=== PATIENT | female | born 1960 | race Two or more races ===

== ENCOUNTER 2023-10-03 12:33 | Outpatient (CLI) | payer MEDICARE, MEDICAID | END 2023-10-03 23:59 | disposition home or self-care (01) | LOC: RAD 12:33 | PROVIDERS: ATTEND Family Medicine | DX: Z12.2 Encounter for screening for malignant neoplasm of respiratory organs (principal); Z87.891 Personal history of nicotine dependence; R05.1 Acute cough; R91.1 Solitary pulmonary nodule | CPT/HCPCS: 71046; 71271 ==

== ENCOUNTER 2024-11-28 08:03 | Outpatient (CLI) | payer MEDICARE, MEDICAID ==
--- NOTE | 2024-11-28 10:08 | RADIOLOGY REPORT ---
INDICATION: CHRONIC BILAT LBP WITH BILAT SCIATICA COMPARISON: None TECHNIQUE: 3 views of the lumbar spine were obtained. FINDINGS: The lumbar vertebral alignment is normal. Multilevel degenerative changes most severe at l4-l5 thru l5-s1 causing moderate to severe neuroforam inal stenosis and spinal canal stenosis No acute fracture, vertebral compression deformity or aggressive osseous lesions. The paravertebral soft tissues are grossly unremarkable. IMPRESSION: No acute fracture or subluxation.
== END 2024-11-28 23:59 | disposition home or self-care (01) ==
LOC: RAD 08:03
PROVIDERS: ATTEND Student in an Organized Health Care Education/Training Program
DX: M47.27 Other spondylosis with radiculopathy, lumbosacral region (principal); M54.42 Lumbago with sciatica, left side; Z79.899 Other long term (current) drug therapy; M48.07 Spinal stenosis, lumbosacral region
CPT/HCPCS: 72110